=== PATIENT | female | born 1980 | race Caucasian/White ===

== ENCOUNTER 2021-03-05 21:23 | Emergency (ER) | payer OTHER ==
[2021-03-05 22:47] LABS: BILIRUBIN NEGATIVE (NEGATIVE); BLOOD 1+ Ery/uL (NEGATIVE); COLOR YELLOW (YELLOW); GLUCOSE (U) NORMAL (NORMAL); LEUKOCYTES NEGATIVE Leu/uL (NEGATIVE); NITRITE NEGATIVE (NEGATIVE); PROTEIN NEGATIVE (NEGATIVE); pH 6.5 (5.0-9.0)
[2021-03-05 22:47] LABS: BASOPHIL 0.5 % (0-2); EOSINOPHIL 1.8 % (0-5); HCT 44.5 % (37.0-47.0); HGB 14.4 g/dl (12.5-16.0); LYMPHOCYTE 38.6 % (15-48); MCH 28.9 pg (25.0-31.0); MCHC 32.4 g/dL (32.0-36.0); MCV 89.2 fL (78.0-100.0); MONOCYTE 6.5 % (0-12); MPV 10.2 fL (6.0-9.5); NEUTROPHIL 52.2 % (41-80); NRBC 0; PLT 323 K/uL (150-400); RBC 4.99 M/uL (4.20-5.40); RDW 12.9 % (11.5-14.0); WBC 8.1 K/uL (4.0-10.5)
[2021-03-05 23:03] LABS: CREATININE 0.75 mg/dL (0.51-0.95); POTASSIUM 3.4 mmol/L (3.5-5.1)
[2021-03-05 23:07] LABS: BACTERIA TRACE; CLARITY SLIGHTLY HAZY (CLEAR); URINARY WBC RARE
[2021-03-05 23:08] LABS: CALCIUM OXALATE CRYSTALS LARGE
[2021-03-05 23:40] LABS: LACTIC ACID 2.5 mmol/L (0.4-1.9)
== END 2021-03-06 01:39 | disposition home or self-care (01) ==
LOC: FER 21:23
PROVIDERS: Emergency Medicine
DX: U07.1 COVID-19 (principal); K21.9 Gastro-esophageal reflux disease without esophagitis; Z88.6 Allergy status to analgesic agent; Z79.899 Other long term (current) drug therapy
CPT/HCPCS: 36415; 80048; 81001; 83605; 85025; J2405; J7030